=== PATIENT | female | born 1960 | race Caucasian/White ===

== ENCOUNTER 2017-06-26 06:50 | Emergency (ER) | payer MEDICAID ==
[2017-06-26] MEDS: IBUPROFEN 600 MG TAB PO (08:18)
== END 2017-06-26 09:25 | disposition home or self-care (01) ==
LOC: FTE 06:50
DX: R07.81 Pleurodynia (principal); M79.604 Pain in right leg
CPT/HCPCS: 71045; 93005; 93971; 99285-25

== ENCOUNTER 2018-01-01 09:54 | Emergency (ER) | payer MEDICAID ==
[2018-01-01 10:38] LABS: URINE BLOOD (Dip) POC Negative (NEGATIVE); URINE GLUCOSE (Dip) POC Negative (NEGATIVE); URINE KETONES (Dip) POC 2+ (NEGATIVE); URINE LEUKOCYTE EST (Dip) POC 1+ (NEGATIVE); URINE NITRITE (Dip) POC Negative (NEGATIVE); URINE TOTAL PROTEIN POC Trace (NEGATIVE)
[2018-01-01] MEDS: ACETAMINOPHEN 325 MG TAB PO (10:38)
[2018-01-01 11:07] LABS: ADD MAN DIFF? NO
[2018-01-01 11:09] LABS: BASOPHIL # 0.1 10^3/ul (0.0-0.1); BASOPHILS % 0.3 % (0.0-2.0); EOSINOPHILS # 0.1 10^3/ul (0.0-0.5); EOSINOPHILS % 0.5 % (0.0-7.0); HEMATOCRIT 37.8 % (37.0-47.0); HEMOGLOBIN 13.3 g/dl (12.0-16.0); LYMPHOCYTES # 1.1 10^3/ul (0.8-2.9); LYMPHOCYTES % 6.3 % (15.0-51.0); MEAN CORPUSCULAR HEMOGLOBIN 30.7 pg (29.0-33.0); MEAN CORPUSCULAR HGB CONC 35.2 g/dl (32.0-37.0); MEAN CORPUSCULAR VOLUME 87.3 fl (82.0-101.0); MEAN PLATELET VOLUME 10.2 fl (7.4-10.4); MONOCYTE # 1.1 10^3/ul (0.3-0.9); MONOCYTES % 6.4 % (0.0-11.0); NEUTROPHIL # 14.6 10^3/ul (1.6-7.5); PLATELET COUNT 300 10^3/UL (140-415); RED BLOOD COUNT 4.33 10^6/ul (4.20-5.40); RED CELL DISTRIBUTION WIDTH 12.3 % (11.5-14.5)
[2018-01-01 11:34] LABS: ALANINE AMINOTRANSFERASE 24 IU/L (13-69); ALBUMIN 3.9 g/dl (3.3-4.9); ALBUMIN/GLOBULIN RATIO 1.14; ALKALINE PHOSPHATASE 107 IU/L (42-121); ANION GAP 15 (8-16); ASPARTATE AMINO TRANSFERASE 28 IU/L (15-46); BILIRUBIN,INDIRECT 0.4 mg/dl (0-1.1); BILIRUBIN,TOTAL 0.4 mg/dl (0.2-1.3); BLOOD UREA NITROGEN 6 mg/dl (7-20); CALCIUM 9.3 mg/dl (8.4-10.2); CARBON DIOXIDE 23 mmol/L (21-31); CHLORIDE 102 mmol/L (97-110); CREATININE 0.76 mg/dl (0.44-1.00); GLUCOSE 113 mg/dl (70-220); POTASSIUM 3.9 mmol/L (3.5-5.1); SODIUM 136 mmol/L (135-144); TOTAL PROTEIN 7.3 g/dl (6.1-8.1)
[2018-01-01 11:37] LABS: C-REACTIVE PROTEIN 5.8 mg/dl (0.0-0.9)
[2018-01-01 12:52] LABS: ERYTHROCYTE SEDIMENTATION RATE 25 mm/Hr (0-30)
[2018-01-01] MEDS: SOD CHLORIDE 0.9% 100 ML (14:27)
[2018-01-01] MEDS: IOHEXOL 300MG/ML 150 ML BTL (14:27)
== END 2018-01-01 15:58 | disposition home or self-care (01) ==
LOC: FTE 09:54
DX: N39.0 Urinary tract infection, site not specified (principal)
CPT/HCPCS: 74177; 80053; 81003; 85025; 85651; 86140; 99285-25